=== PATIENT | female | born 1950 | race Caucasian/White ===

== ENCOUNTER → 2021-01-31 10:35 | Outpatient (BNVA) | payer MEDICARE, SELFPAY | PROVIDERS: Family Provider Physician Assistant Medical; PCP Physician Assistant Medical; Referring Provider Family Medicine; Visit Provider Orthopaedic Surgery | DX: M25.519 Pain in unspecified shoulder (principal); M25.511 Pain in right shoulder; M67.911 Unspecified disorder of synovium and tendon, right shoulder | CPT/HCPCS: 73030 ==

== ENCOUNTER → 2022-01-25 12:04 | Outpatient (BNVA) | payer MEDICARE, SELFPAY | PROVIDERS: PCP Physician Assistant Medical; Visit Provider Podiatrist Foot & Ankle Surgery | DX: L60.3 Nail dystrophy (principal); L60.8 Other nail disorders; E11.42 Type 2 diabetes mellitus with diabetic polyneuropathy; M79.672 Pain in left foot | CPT/HCPCS: 99213 ==

== ENCOUNTER → 2022-04-30 11:04 | Outpatient (BNVA) | payer MEDICARE, SELFPAY | PROVIDERS: PCP Physician Assistant Medical; Visit Provider Podiatrist Foot & Ankle Surgery | DX: E11.8 Type 2 diabetes mellitus with unspecified complications (principal); E11.42 Type 2 diabetes mellitus with diabetic polyneuropathy; L60.3 Nail dystrophy; L60.8 Other nail disorders; Z79.84 Long term (current) use of oral hypoglycemic drugs; Z79.4 Long term (current) use of insulin | CPT/HCPCS: 11721 ==

== ENCOUNTER → 2023-04-18 14:05 | Outpatient (BNVA) | payer MEDICARE, SELFPAY | PROVIDERS: PCP Physician Assistant Medical; Visit Provider Podiatrist Foot & Ankle Surgery | DX: E11.42 Type 2 diabetes mellitus with diabetic polyneuropathy (principal); M77.40 Metatarsalgia, unspecified foot; M21.41 Flat foot [pes planus] (acquired), right foot; M21.42 Flat foot [pes planus] (acquired), left foot; M72.2 Plantar fascial fibromatosis; Z79.84 Long term (current) use of oral hypoglycemic drugs; Z79.4 Long term (current) use of insulin | CPT/HCPCS: 99213 ==

== ENCOUNTER → 2023-07-23 12:38 | Outpatient (BNVA) | payer MEDICARE, SELFPAY | PROVIDERS: PCP Physician Assistant Medical; Visit Provider Podiatrist Foot & Ankle Surgery | DX: E11.42 Type 2 diabetes mellitus with diabetic polyneuropathy (principal); M77.41 Metatarsalgia, right foot; M77.42 Metatarsalgia, left foot; M21.41 Flat foot [pes planus] (acquired), right foot; M21.42 Flat foot [pes planus] (acquired), left foot; M72.2 Plantar fascial fibromatosis; L60.8 Other nail disorders; Z79.84 Long term (current) use of oral hypoglycemic drugs | CPT/HCPCS: 11721; 99213 ==

== ENCOUNTER → 2023-10-23 12:46 | Outpatient (BNVA) | payer MEDICARE, SELFPAY | PROVIDERS: PCP Nurse Practitioner Family; Visit Provider Podiatrist Foot & Ankle Surgery | DX: E11.42 Type 2 diabetes mellitus with diabetic polyneuropathy (principal); L60.8 Other nail disorders; Z79.4 Long term (current) use of insulin; Z79.84 Long term (current) use of oral hypoglycemic drugs | CPT/HCPCS: 11721 ==

== ENCOUNTER → 2024-01-07 14:48 | Outpatient (BNVA) | payer MEDICARE, SELFPAY | PROVIDERS: PCP Nurse Practitioner Family; Visit Provider Podiatrist Foot & Ankle Surgery | DX: E11.42 Type 2 diabetes mellitus with diabetic polyneuropathy (principal); L60.8 Other nail disorders; Z79.84 Long term (current) use of oral hypoglycemic drugs; Z79.4 Long term (current) use of insulin | CPT/HCPCS: 11721; 99213 ==

== ENCOUNTER 2024-02-18 16:28 | Day surgery (SDC) | payer MEDICARE, SELFPAY ==
[2024-02-18] VITALS (11 sets, daily range): BP systolic 137–177; BP diastolic 64–81; PULSE 63–74; RESP 14–16; TEMP 36.1–36.3; O2SAT 96–100
--- NOTE | 2024-02-18 18:02 | XRR_ITS ---
PROCEDURE INFORMATION: Exam: XR Chest Exam date and time: 02/18/2024 6:20 PM Age: 73 years old Clinical indication: Other: Food bolus TECHNIQUE: Imaging protocol: Radiologic exam of the chest. Views: 2 views. COMPARISON: CR XR shoulder RT min 2V* [id number] 01/31/2021 10:41 AM FINDINGS: Lungs: No active pulmonary pathology. Pleural spaces: No pleural effusion. Heart/Mediastinum: Cardiomediastinal contours within normal limits. Bones/joints: Thoracolumbar spine curvature. Mild degenerative change present in the spine. Intraperitoneal space: Surgical clips noted in the left upper quadrant of the abdomen. XR/XR chest 2V* [id number] IMPRESSION: No acute pathology.
--- NOTE | 2024-02-18 18:09 | ED_ITS ---
Documented by User: [email or web address] Roque 02/18/24 19:25 HPI - Abdominal Pain 2 General: Chief Complaint: Airway/Esophagus Foreign Body Stated Complaint: [facility] sent over for a scope Time Seen by Provider: 02/18/24 18:01 History of Present Illness: 73-year-old female came in by POV for di fficulty swallowing. Patient had been eating some pot roast yesterday afternoon and since then has been able to drink water or hold down her own saliva. Patient does report a history of prior episodes but usually it goes down after a while . Patient does take medication for GERD. Patient also has a history of hypertension, diabetes mellitus, chronic kidney disease, and a TIA. Spouse is at bedside. Patient does take routine medications for chronic pain for neuropathy and back pain. Review of Systems 2 General: Reports: 10 or more systems reviewed and unremarkable except in HPI and below GI: Reports: dysphagia PFSH ED 2 PFSH: Medical History Diabetes GERD (gastroesophageal reflux disease) Hypertension Hyperlipemia Surgical History History of kidney removal Family History Denies family history of Colon cancer Ovarian cancer Diabetes Heart disease Hypercholesteremia Breast cancer Hypertension Uterine cancer Thyroid disease Stroke Physical Exam 2 Const: COMMON NORMALS: alert HENMT: COMMON NORMALS: normocephalic HEAD & SCALP: normocephalic Neck/C-Spine: COMMON NORMALS: full ROM Resp: COMMON NORMALS: normal respiratory effort and clear to auscultation bilaterally AUSCULTATION: clear to auscultation bilaterally Cardio: COMMON NORMALS: regular rate and regular rhythm RATE: regular rate RHYTHM: regular rhythm GI: COMMON NORMALS: Soft to palpation AUSCULTATION: Yes Hypoactive bowel sounds present PALPATION: Yes Soft to palpation and No Tenderness to palpation present (GI) Back/Pelvis: COMMON NORMALS: thoracic and lumbar spine normal to inspection Extremity: COMMON NORMALS: normal to inspection Neuro: SENSORIUM/ORIENTATION: Yes alert Skin: COMMON NORMALS: turgor normal GENERAL SKIN EXAM: turgor normal Course 2 Vital Signs: Vital signs: Vital Signs Temperature 97.4 F L 02/18/24 20:10 Pulse Rate 68 02/18/24 20:27 Respiratory Rate 16 02/18/24 20:27 Blood Pressure 163/70 02/18/24 20:27 Pulse Oximetry 100 02/18/24 20:27 Oxygen Delivery Me thod Room Air 02/18/24 20:27 MDM - Abdominal Pain Medical Decision Making 73-year-old female comes in today for complaints of difficulty swallowing. Patient reports that since eating some pot roast yesterday she has been unable to swallow any further fluids. She will take a sip of water and then after a while she will regurgitate it. On exam patient appears nontoxic. Patient appears to be managing secretions. Differential diagnosis includes esophageal stricture, esophageal rupture, food bolus. I discussed the patient with Dr. Oneill, who agreed to take patient to GI lab for a scope to rule out food bolus. Patient was given 1 mg of glucagon for esophageal relaxation. Patient reports understanding of care plan and need for further treatment. Lab Data 02/18/24 18:45 02/18/24 18:45 Labs/Radiology: Radiology Impressions Chest X-Ray 02/18/24 18:02 IMPRESSION: No acute pathology. Laboratory Results WBC 8.87 10^3/uL (3.29-11.43) 02/18/24 18:45 RBC 4.13 10^6/uL (3.85-5.65) 02/18/24 18:45 Hgb 12.30 g/dL (11.27-16.99) 02/18/24 18:45 Hct 36.6 % (36-47) 02/18/24 18:45 MCV 88.6 fl (85-98) 02/18/24 18:45 MCH 29.8 pg (27-33) 02/18/24 18:45 MCHC 33.6 g/dL (30-55) 02/18/24 18:45 RDW 11.7 % (12.1-15.1) L 02/18/24 18:45 Plt Count 213 10^3/cmm (157-399) 02/18/24 18:45 MPV 10.4 fL (7.4-10.4) 02/18/24 18:45 Neut % (Auto) 73.0 % 02/18/24 18:45 Lymph % (Auto) 22.7 % 02/18/24 18:45 Bibb % (Auto) 3.7 % 02/18/24 18:45 Eos % (Auto) 0.1 % 02/18/24 18:45 Baso % (Auto) 0.3 % 02/18/24 18:45 Neut # (Auto) 6.47 10^3/uL (1.8-7.7) 02/18/24 18:45 Lymph # (Auto) 2.0 10^3/uL (0.8-4.8) 02/18/24 18:45 Bibb # (Auto) 0.3 10^3/uL (0.2-0.9) 02/18/24 18:45 Eos # (Auto) 0.0 10^3/uL (0.0-0.8) 02/18/24 18:45 Baso # (Auto) 0.0 10^3/uL (0.0-0.1) 02/18/24 18:45 Nucleated RBC % (auto) 0 % 02/18/24 18:45 Nucleated RBCs # 0.0 /100WBC 02/18/24 18:45 Sodium 141 mmol/L (136-145) 02/18/24 18:45 Potassium 4.3 mmol/L (3.5-5.1) 02/18/24 18:45 Chloride 103 mmol/L (98-107) 02/18/24 18:45 Carbon Dioxide 25 mmol/L (22-29) 02/18/24 18:45 Anion Gap 17.3 (5-19) 02/18/24 18:45 BUN 17 mg/dL (8-23) 02/18/24 18:45 Creatinine 1.2 mg/dL (0.5-0.9) H 02/18/24 18:45 GFR Calculation Not Reportable 02/18/24 18:45 Glucose 178 mg/dL (65-115) H 02/18/24 18:45 Calculated Osmolality 298 mOsm/kg (285-295) H 02/18/24 18:45 Calcium 9.9 mg/dL (8.5-10.5) 02/18/24 18:45 Total Bilirubin 0.7 mg/dL (0.15-1.2) 02/18/24 18:45 AST 25 U/L (0-32) 02/18/24 18:45 ALT 14 U/L (0-33) 02/18/24 18:45 Alkaline Phosphatase 106 U/L (35-105) H 02/18/24 18:45 Total Protein 8.0 g/dL (6.6-8.7) 02/18/24 18:45 Albumin 4.5 g/dL (3.5-5.2) 02/18/24 18:45 Globulin 3.5 g/dL (1.3-4.6) 02/18/24 18:45 All radiology interpretation(s) finalized by discharge Discharge Plan Discharge Patient Disposition: Admitted As Inpatient Clinical Impression: Esophageal obstruction due to food impaction Condition: Stable Discharge Diet: As Directed Discharge Activity: Resume usual activity Coding Level of Care Code ED Practice Assistant for Chg Fwd Documented by User: Terence Abel DO 02/19/24 06:33 HPI - Abdominal Pain 2 General: Chief Complaint: Airway/Esophagus Foreign Body Stated Complaint: [facility] sent [facility] for a scope Time Seen by Provider: 02/18/24 18:01 [facility] ED 2 PFSH: Medical History Diabetes GERD (gastroesophageal reflux disease) Hypertension Hyperlipemia Surgical History History of kidney removal Family History Denies family history of Colon cancer Ovarian cancer Diabetes Heart disease Hypercholesteremia Breast cancer Hypertension Uterine cancer Thyroid disease Stroke Course 2 Vital Signs: Vital signs: Vital Signs Temperature 97.4 F L 02/18/24 20:10 Pulse Rate 68 02/18/24 20:27 Respiratory Rate 16 02/18/24 20:27 Blood Pressure 163/70 02/18/24 20:27 Pulse Oximetry 100 02/18/24 20:27 Oxygen Delivery Me thod Room Air 07/10/24 20:27 MDM - Abdominal Pain Medical Decision Making 73-year-old female comes in today for complaints of difficulty swallowing. Patient reports that since eating some pot roast yesterday she has been unable to swallow any further fluids. She will take a sip of water and then after a while she will regurgitate it. On exam patient appears nontoxic. Patient appears to be managing secretions. Differential diagnosis includes esophageal stricture, esophageal rupture, food bolus. I discussed the patient with Dr. Oneill, who agreed to take patient to GI lab for a scope to rule out food bolus. Patient was given 1 mg of glucagon for esophageal relaxation. Patient reports understanding of care plan and need for further treatment. Chart reviewed and patient discussed with midlevel. Agree with assessment and plan. Lab Data 02/18/24 18:45 02/18/24 18:45 Labs/Radiology: Radiology Impressions Chest X-Ray 02/18/24 18:02 IMPRESSION: No acute pathology. Laboratory Results WBC 8.87 10^3/uL (3.29-11.43) 02/18/24 18:45 RBC 4.13 10^6/uL (3.85-5.65) 02/18/24 18:45 Hgb 12.30 g/dL (11.27-16.99) 02/18/24 18:45 Hct 36.6 % (36-47) 02/18/24 18:45 MCV 88.6 fl (85-98) 02/18/24 18:45 MCH 29.8 pg (27-33) 02/18/24 18:45 MCHC 33.6 g/dL (30-55) 02/18/24 18:45 RDW 11.7 % (12.1-15.1) L 02/18/24 18:45 Plt Count 213 10^3/cmm (157-399) 02/18/24 18:45 MPV 10.4 fL (7.4-10.4) 02/18/24 18:45 Neut % (Auto) 73.0 % 02/18/24 18:45 Lymph % (Auto) 22.7 % 02/18/24 18:45 Bibb % (Auto) 3.7 % 02/18/24 18:45 Eos % (Auto) 0.1 % 02/18/24 18:45 Baso % (Auto) 0.3 % 02/18/24 18:45 Neut # (Auto) 6.47 10^3/uL (1.8-7.7) 02/18/24 18:45 Lymph # (Auto) 2.0 10^3/uL (0.8-4.8) 02/18/24 18:45 Bibb # (Auto) 0.3 10^3/uL (0.2-0.9) 02/18/24 18:45 Eos # (Auto) 0.0 10^3/uL (0.0-0.8) 02/18/24 18:45 Baso # (Auto) 0.0 10^3/uL (0.0-0.1) 02/18/24 18:45 Nucleated RBC % (auto) 0 % 02/18/24 18:45 Nucleated RBCs # 0.0 /100WBC 02/18/24 18:45 Sodium 141 mmol/L (136-145) 02/18/24 18:45 Potassium 4.3 mmol/L (3.5-5.1) 02/18/24 18:45 Chloride 103 mmol/L (98-107) 02/18/24 18:45 Carbon Dioxide 25 mmol/L (22-29) 02/18/24 18:45 Anion Gap 17.3 (5-19) 02/18/24 18:45 BUN 17 mg/dL (8-23) 02/18/24 18:45 Creatinine 1.2 mg/dL (0.5-0.9) H 02/18/24 18:45 GFR Calculation Not Reportable 02/18/24 18:45 Glucose 178 mg/dL (65-115) H 02/18/24 18:45 Calculated Osmolality 298 mOsm/kg (285-295) H 02/18/24 18:45 Calcium 9.9 mg/dL (8.5-10.5) 02/18/24 18:45 Total Bilirubin 0.7 mg/dL (0.15-1.2) 02/18/24 18:45 AST 25 U/L (0-32) 02/18/24 18:45 ALT 14 U/L (0-33) 02/18/24 18:45 Alkaline Phosphatase 106 U/L (35-105) H 02/18/24 18:45 Total Protein 8.0 g/dL (6.6-8.7) 02/18/24 18:45 Albumin 4.5 g/dL (3.5-5.2) 02/18/24 18:45 Globulin 3.5 g/dL (1.3-4.6) 02/18/24 18:45 Discharge Plan Discharge Patient Disposition: Admitted As Inpatient Clinical Impression: Esophageal obstruction due to food impaction Condition: Stable Discharge Diet: As Directed Discharge Activity: Resume usual activity Coding Level of Care Code ED Practice Assistant for An [place]
--- NOTE | 2024-02-18 18:40 | P.ANESASSM_ITS ---
Pre-Anesthetic Assessment Height/Weight: Height 1.55 m Weight 61.235 kg Resp O2 Del Method 15 Room Air 02/18/24 16:48 02/18/24 16:48 EGD CV/HEM Hypertension GI Gastroesophageal Reflux Disease Metabolic Diabetes Mellitus Anesthetic Plan ASA status: 3 Anesthesia: General Risk of > 500 ml blood loss (7ml/kg in children): No Medications/Allergies Home Medications Medication Instructions Recorded Confirmed Last Taken Type aspirin 81 mg tablet,delayed 81 mg PO DAILY 10/11/20 01/07/24 Unknown History release (Adult Aspirin Regimen) atenolol 50 mg tablet 50 mg PO DAILY 10/11/20 01/07/24 Unknown History hydrocodone 10 mg-acetaminophen 1 tab PO BID PRN 10/11/20 01/07/24 Unknown History 325 mg tablet ([place]) insulin degludec 100 unit/mL (3 70 unit SUBCUT DAILY 10/11/20 01/07/24 Unknown History mL) subcutaneous pen (Tresiba FlexTouch U-100 insulin) lisinopril 5 mg tablet 5 mg PO DAILY 10/11/20 01/07/24 Unknown History metformin 1,000 mg tablet 1,000 mg PO BID 10/11/20 01/07/24 Unknown History methadone 10 mg tablet 10 mg PO Q12H 10/11/20 01/07/24 Unknown History multivitamin 1 tab PO DAILY 10/11/20 01/07/24 Unknown History pantoprazole 40 mg tablet,delayed 40 mg PO DAILY 10/11/20 01/07/24 Unknown History release (Protonix) simvastatin 40 mg tablet 40 mg PO DAILY 10/11/20 01/07/24 Unknown History mupirocin 2 % topical ointment 1 applic topical BID heel sore #15 01/25/22 01/07/24 Unknown Rx grams custom molded accommodated insoles #1 ea 04/18/23 01/07/24 Unknown Rx diabetic shoes (no insoles) #1 ea 04/18/23 01/07/24 Unknown Rx night splint #1 ea 07/23/23 01/07/24 Unknown Rx Diabetic Shoes with custom #1 ea 11/24/23 01/07/24 Unknown Rx accomdated insoles Allergies Allergy/AdvReac Type Severity Reaction Status Date / Time Sulfa (Sulfonamide Allergy Unknown Verified 02/18/24 16:54 Antibiotics) [facility] Anesthesia Medical History Diabetes GERD (gastroesophageal reflux disease) Hypertension Hyperlipemia Surgical History History of kidney removal Family History Denies family history of Colon cancer Ovarian cancer Diabetes Heart disease Hypercholesteremia Breast cancer Hypertension Uterine cancer Thyroid disease Stroke Data Anesthesia Cardiac Studies: No Data to Display
[2024-02-18] MEDS: glucagon 1 mg/mL KIT 1 mL IVP (18:49)
--- NOTE | 2024-02-18 18:57 | P.HP_ITS ---
Providers/Chief Complaint 2 Primary Care Provider: Joie Schmidt Chief Complaint: [facility] sent over for a scope History of Present Illness Rebecca Mcgrath is a 73 year old female who presented to the emergency department complaining of sensation of foreign body in the chest, she was eating pot roast yesterday and after that she felt like things get stuck in the middle of her esophagus, since then she has not been able to eat every thing that she swallows comes right back Including saliva. She denies abdominal pain or other symptoms. Review of Systems 2 General: Reports: 10 or more systems reviewed and unremarkable except in HPI and below Medications/Allergies Home Medications Medication Instructions Recorded Confirmed Last Taken Type aspirin 81 mg tablet,delayed 81 mg PO DAILY 10/11/20 01/07/24 Unknown History release (Adult Aspirin Regimen) atenolol 50 mg tablet 50 mg PO DAILY 10/11/20 01/07/24 Unknown History hydrocodone 10 mg-acetaminophen 1 tab PO BID PRN 10/11/20 01/07/24 Unknown History 325 mg tablet ([place]) insulin degludec 100 unit/mL (3 70 unit SUBCUT DAILY 10/11/20 01/07/24 Unknown History mL) subcutaneous pen (Tresiba FlexTouch U-100 insulin) lisinopril 5 mg tablet 5 mg PO DAILY 10/11/20 01/07/24 Unknown History metformin 1,000 mg tablet 1,000 mg PO BID 10/11/20 01/07/24 Unknown History methadone 10 mg tablet 10 mg PO Q12H 10/11/20 01/07/24 Unknown History multivitamin 1 tab PO DAILY 10/11/20 01/07/24 Unknown History pantoprazole 40 mg tablet,delayed 40 mg PO DAILY 10/11/20 01/07/24 Unknown History release (Protonix) simvastatin 40 mg tablet 40 mg PO DAILY 10/11/20 01/07/24 Unknown History mupirocin 2 % topical ointment 1 applic topical BID heel sore #15 01/25/22 01/07/24 Unknown Rx grams custom molded accommodated insoles #1 ea 04/18/23 01/07/24 Unknown Rx diabetic shoes (no insoles) #1 ea 04/18/23 01/07/24 Unknown Rx night splint #1 ea 07/23/23 01/07/24 Unknown Rx Diabetic Shoes with custom #1 ea 11/24/23 01/07/24 Unknown Rx accomdated insoles Allergies Allergy/AdvReac Type Severity Reaction Status Date / Time Sulfa (Sulfonamide Allergy Unknown Verified 02/18/24 16:54 Antibiotics) PFSH Acute 2 PFSH: Medical History Diabetes GERD (gastroesophageal reflux disease) Hypertension Hyperlipemia Surgical History History of kidney removal Family History Denies family history of Colon cancer Ovarian cancer Diabetes Heart disease Hypercholesteremia Breast cancer Hypertension Uterine cancer Thyroid disease Stroke Vitals/I&O/Wt Last Vital Signs Resp 15 02/18/24 16:48 O2 Del Method Room Air 02/18/24 16:48 Weight last 48 hrs Weight 135 lb Physical Exam 2 Narrative: General : Patient is well developed , no acute distress, oriented x3 Head : Normal cephalic, a-traumatic. Nose : Mucous membranes are without erythema. Lungs : Equal chest rise bilaterally, no use of accessory muscles, trachea is midline. CV : Rate and rhythm are normal. Abdomen : Soft, ND, NT, no g/r/m Extremities : No edema. Upper extremities are normal bilaterally. Back : non-tender to palpation, no CVA tenderness. Data 02/18/24 18:45 02/18/24 18:45 A&P Assessment and plan (1) Esophageal foreign body: Plan After complete history, physical examination and review of all available clinical data the following is my assessment. I agree the patient's symptoms are most likely cause by a food bolus impaction. Patient has failed conservative management and will need to proceed to the endoscopy suite for removal of foreign body. I have discussed all the risk and benefits of the operation including the risk of perforation of the esophagus, stomach, duodenum that may require surgical intervention transfer to higher level of care, there is always a chance of mucosal injury, possibility of restenosis and recurrent symptoms, injury to soft tissue of the mouth and pharynx and teeth. Patient shows understanding wishes to proceed. Patient will be taken to the GI lab and after procedure she will be able to be discharged home on PPI and sucralfate Attestations 2 Medical Necessity Statement*: For discharge after EGD. Coding Level of Care Code Acute Code for Chg Fwd Diagnoses Esophageal foreign body T18.108A
--- NOTE | 2024-02-18 18:59 | ECG_ITS ---
[facility] Test Date: 2024-02-18 Pat Name: Rebecca Mcgrath Department: Room: Gender: Female Senior Design Engineering Specialist: : 1950 Requested By: Prem Marie Order Number: [id number] Travon MD: Francis Emmanuel M.D. Measurements Intervals [place] Rate: 72 P: 56 AR: 153 QRS: -38 QRSD: 97 T: 51 QT: 412 QTc: 453 Interpretive Statements SINUS RHYTHM LEFT AXIS DEVIATION [QRS AXIS < -30] No previous ECG available for comparison Electronically Signed On 02-18-2024 22:42:48 CDT by Francis Emmanuel M.D. [id number]
[2024-02-18 19:00] LABS: Basophils % 0.3 %; Eosinophils % 0.1 %; Hematocrit 36.6 % (36-47); Lymphocytes % 22.7 %; Mean Corpuscular HGB Conc 33.6 g/dL (30-55); Mean Corpuscular Hemoglobin 29.8 pg (27-33); Mean Corpuscular Volume 88.6 fl (85-98); Mean Platelet Volume 10.4 fL (7.4-10.4); Monocytes # 0.3 10^3/uL (0.2-0.9); Monocytes % 3.7 %; Neutrophils # 6.47 10^3/uL (1.8-7.7); Nucleated Red Blood Cells % 0 %; Platelet Count 213 10^3/cmm (157-399); Red Blood Count 4.13 10^6/uL (3.85-5.65); Red Cell Distribution Width 11.7 % (12.1-15.1); White Blood Count 8.87 10^3/uL (3.29-11.43)
[2024-02-18 19:22] LABS: Alanine Aminotransferase 14 U/L (0-33); Albumin Level 4.5 g/dL (3.5-5.2); Alkaline Phosphatase 106 U/L (35-105); Anion Gap 17.3 (5-19); Aspartate Amino Transferase 25 U/L (0-32); Blood Urea Nitrogen 17 mg/dL (8-23); Calcium 9.9 mg/dL (8.5-10.5); Carbon Dioxide 25 mmol/L (22-29); Chloride 103 mmol/L (98-107); Creatinine Clr Calc Pharmacy 35.5724; Globulin 3.5 g/dL (1.3-4.6); Glucose 178 mg/dL (65-115); Osmolality Calculated 298 mOsm/kg (285-295); Potassium 4.3 mmol/L (3.5-5.1); Sodium 141 mmol/L (136-145); Total Bilirubin 0.7 mg/dL (0.15-1.2)
== END 2024-02-18 20:45 | disposition home or self-care (01) ==
LOC: ER 18:10 → GILAB 19:01
PROVIDERS: Emergency Provider Nurse Practitioner Family; PCP Nurse Practitioner Family; Visit Provider Surgery
PROC: 0DJ08ZZ Inspection of Upper Intestinal Tract, Via Natural or Artificial Opening Endoscopic (ICD-10-PCS; CPT 43235; principal; 2024-02-18 18:50)
DX: T18.128A Food in esophagus causing other injury, initial encounter (principal); K29.50 Unspecified chronic gastritis without bleeding; Z79.82 Long term (current) use of aspirin; Z79.4 Long term (current) use of insulin; Z79.84 Long term (current) use of oral hypoglycemic drugs; E11.9 Type 2 diabetes mellitus without complications; K21.9 Gastro-esophageal reflux disease without esophagitis; I10 Essential (primary) hypertension; E78.5 Hyperlipidemia, unspecified
CPT/HCPCS: 43239; 71046; 80053; 85025; 88305; 93005; J0330; J1100; J1610; J2371; J2405; J2704; J3490

== ENCOUNTER → 2024-04-07 13:00 | Outpatient (BNVA) | payer MEDICARE, SELFPAY | PROVIDERS: PCP Nurse Practitioner Family; Visit Provider Podiatrist Foot & Ankle Surgery | DX: E11.42 Type 2 diabetes mellitus with diabetic polyneuropathy (principal); L60.8 Other nail disorders; Z79.84 Long term (current) use of oral hypoglycemic drugs; Z79.4 Long term (current) use of insulin | CPT/HCPCS: 11721 ==

== ENCOUNTER → 2024-07-06 13:23 | Outpatient (BNVA) | payer MEDICARE, SELFPAY | PROVIDERS: PCP Nurse Practitioner Family; Visit Provider Podiatrist Foot & Ankle Surgery | DX: E11.42 Type 2 diabetes mellitus with diabetic polyneuropathy (principal); L60.8 Other nail disorders | CPT/HCPCS: 11721 ==